=== PATIENT | male | born 1965 | race Caucasian/White ===

== ENCOUNTER → 2020-05-30 16:02 | Outpatient (CLI) | payer OTHER, SELFPAY ==
--- NOTE | ~2020-05-30 | CT_ITS ---
EXAMINATION: CT chest wo con DATE: 05/30/2020 16:33 INDICATION: Cough. Post COVID-19 TECHNIQUE: Computed tomography (CT) of the chest was performed without intravenous contrast. Automate d exposure control and iterative reconstruction technique were employed. Exam dose: 745.40 mGy-cm to royce exam DLP. COMPARISON: None FINDINGS: No pulmonary infiltrate or consolidation, pulmonary vascular congestion or pleural effusion or pneumothorax. Normal heart size. No pericardial effusion. No hilar or mediastinal mass lesion or lymphadenopathy. No thoracic aortic aneurysm. Normal adrenal glands. No suspicious osteolytic or osteoblastic lesions. IMPRESSION: No significant abnormality Reviewed, dictated and finalized at [facility] Reviewed, dictated and finalized at [facility]. IMPRESSION: No significant abnormality
== END ==
PROVIDERS: PCP Family Medicine; Visit Provider Family Medicine
DX: R05 Cough (principal)
CPT/HCPCS: 71250

== ENCOUNTER 2020-09-27 00:47 | Outpatient (CLI) | payer OTHER, SELFPAY ==
[2020-09-27 20:08] LABS: SARS-CoV-2 RNA PCR Negative
== END 2020-09-27 00:48 | disposition home or self-care (01) ==
LOC: ANHCOVIDDT 00:47
PROVIDERS: PCP Family Medicine; Visit Provider Internal Medicine Gastroenterology
DX: Z01.812 Encounter for preprocedural laboratory examination (principal); Z20.822 Contact with and (suspected) exposure to COVID-19
CPT/HCPCS: C9803; U0003

== ENCOUNTER 2020-09-30 01:29 | Day surgery (SDC) | payer OTHER, SELFPAY ==
[2020-09-11 12:42] VITALS: BMI 41.1
[2020-09-30 06:56] VITALS: BP 144/100; PULSE 90; RESP 20; TEMP 36.4; O2SAT 98
[2020-09-30] MEDS: LACTATED RINGERS 1,000 ML 150 ML IV CONT (07:16)
--- NOTE | 2020-09-30 07:31 | WPDANESEPPF ---
Anes - Initial Pre Proc Eval Procedure: Operation Date: 09/30/20 08:00 Proposed Procedures p Screening Colonoscopy - Jose Luis Gonzáles MD Date/Time: 09/30/20 07:31 Surgeon: Jose Luis Gonzáles MD Pre Op Diagnosis: neoplasm screening Patient Data Age: 54 Gender: M Height: 5 ft 10.5 in Weight: 129.8 kg Last Vital Signs Temp 97.5 F L 09/30/20 06:56 Pulse 90 09/30/20 06:56 Resp 20 09/30/20 06:56 BP 144/100 H 09/30/20 06:56 Pulse Ox 98 09/30/20 06:56 Allergies Allergy/AdvReac Type Severity Reaction Status Date / Time No Known Allergies Allergy Mild Verified 09/30/20 06:55 Home Medications Medication Instructions Recorded Confirmed Type omeprazole 20 mg capsule,delayed 20 mg PO DAILY 08/09/19 09/30/20 History release atorvastatin 20 mg tablet 20 mg PO DAILY #30 tablet 09/10/19 09/30/20 Rx irbesartan 150 mg tablet 150 mg PO DAILY #30 tablet 05/26/20 09/30/20 Rx sildenafil 100 mg tablet 100 mg PO DAILY PRN #10 tablet 06/03/20 09/30/20 Rx valacyclovir 1 gram tablet 1,000 mg PO DAILY #30 tablet 06/06/20 09/30/20 Rx peg 3350 240 gram-electrolytes 240 ml PO Q10M #4000 ml 08/04/20 09/30/20 Rx 22.72 gram-6.72 g-5.84 g powdr for soln lisdexamfetamine [Vyvanse] 30 mg PO DAILY PRN 09/11/20 09/30/20 History Patient hx anesthesia problems: none Family hx anesthesia problems: none PMFSH Past Medical History Medical History (Updated 08/05/20 @ 14:56 by Neil Vasquez MD) Chronic nonallergic rhinitis Colon cancer screening Cough COVID-19 virus detected Encounter for screening for other viral diseases Encounter for wellness examination in adult Male erectile dysfunction, unspecified Prepatellar bursitis, right knee Shortness of breath Surgical History Surgical History History of inguinal hernia repair laparoscopic bilateral inguinal hernia repair with Progrip mesh, DaVinci Social History Social History Smoking status: Never smoker Alcohol intake: current Drinks per week: 0 Alcohol use details: MAY HAVE 1 OR 2 DRINKS PER MONTH Substance use: never Substance use type: does not use Living arrangements: with family Spiritual care concerns: No Anes - Eval Final PreProcedure Day of Procedure 09/30/20 07:31 Patient weight: morbidly obese Heart: regular rate and rhythm Lungs: clear to auscultation Airway: Mallampati scale class II Neurological: alert and oriented Last oral intake: >/= 8 hours ASA classification: III Emergent: no Anesthetic plan: proceed Anesthesia type and monitoring: general GIVS and standard monitoring Informed Consent: The patient's anesthetic plan and its attendant risks and benefits were discussed with the patient/family/POA. Questions were solicited and answers provided to the satisfaction of the patient/family/POA.
--- NOTE | 2020-09-30 08:05 | PM.HPGS ---
History of Present Illness History of Present Illness Consent: Risks, benefits, and alternatives have been discussed and questions answered. Patient agrees to proceed with procedure. Chief complaint: neoplasm screening Narrative: Orlando Mcbride is a 54 year old male here for first screening colonoscopy Review of Systems Constitutional: Constitutional: Denies headache(s) and Denies weakness Eyes: Eyes: Denies blurry vision ENT: Reports Normal hearing present, Denies headache(s) and Denies neck pain Cardiovascular: Cardiovascular: Denies chest pain and Denies dyspnea Respiratory: Respiratory: Denies dyspnea Gastrointestinal: Gastrointestinal: Reports no additional gastrointestinal complaints Genitourinary: Genitourinary: Denies dysuria Musculoskeletal: Musculoskeletal: Denies neck pain Integumentary/Breasts: Skin/Breast: Denies dry skin Neurologic: Reports Normal hearing present, Denies headache(s) and Denies weakness Psychiatric: Psychiatric: Denies anxiety Endocrine: Endocrine: Denies change in body appearance Hematologic/Lymphatic: Hematologic/Lymphatic: Denies easy bleeding Allergic/Immunologic: Allergic/Immunologic: Denies urticaria PMFSH Past Medical History Medical History (Updated 08/05/20 @ 14:56 by Neil Vasquez MD) Chronic nonallergic rhinitis Colon cancer screening Cough COVID-19 virus detected Encounter for screening for other viral diseases Encounter for wellness examination in adult Male erectile dysfunction, unspecified Prepatellar bursitis, right knee Shortness of breath Surgical History Surgical History History of inguinal hernia repair laparoscopic bilateral inguinal hernia repair with Progrip mesh, DaVinci Social History Social History Smoking status: Never smoker Alcohol intake: current Drinks per week: 0 Alcohol use details: MAY HAVE 1 OR 2 DRINKS PER MONTH Substance use: never Substance use type: does not use Living arrangements: with family Spiritual care concerns: No Meds Home Medications and Allergies Home Medications Medication Instructions Recorded Confirmed Type omeprazole 20 mg capsule,delayed 20 mg PO DAILY 08/09/19 09/30/20 History release atorvastatin 20 mg tablet 20 mg PO DAILY #30 tablet 09/10/19 09/30/20 Rx irbesartan 150 mg tablet 150 mg PO DAILY #30 tablet 05/26/20 09/30/20 Rx sildenafil 100 mg tablet 100 mg PO DAILY PRN #10 tablet 06/03/20 09/30/20 Rx valacyclovir 1 gram tablet 1,000 mg PO DAILY #30 tablet 06/06/20 09/30/20 Rx peg 3350 240 gram-electrolytes 240 ml PO Q10M #4000 ml 08/04/20 09/30/20 Rx 22.72 gram-6.72 g-5.84 g powdr for soln lisdexamfetamine [Vyvanse] 30 mg PO DAILY PRN 09/11/20 09/30/20 History Allergies Allergy/AdvReac Type Severity Reaction Status Date / Time No Known Allergies Allergy Mild Verified 09/30/20 06:55 Vital Signs Vital Signs - 24 hr 09/30/20 06:56 Temperature 97.5 F L Pulse Rate 90 Respiratory Rate 20 Blood Pressure 144/100 H Pulse Oximetry 98 Exam Const: General: comfortable and no acute distress HENMT: General nose exam: Normal nares present Eyes: General: appearance normal, both eyes and all related structures Neck: Neck: no JVD Resp: Auscultation: clear to auscultation bilaterally Cardio: Rate: regular rate Rhythm: regular rhythm GI: Inspection: non-distended GI Palp: Yes Soft to palpation Skin: General skin exam: normal color Neuro: General: gait normal Speech: normal speech Extrem: General: normal to inspection Psych: Mental Status: mental status grossly normal Assessment and Plan Assessment and plan (1) Colon cancer screening: Code(s): Z12.11 - Encounter for screening for malignant neoplasm of colon Status: Acute Assessment and Plan: will proceed with colonoscopy
[2020-09-30 08:29] VITALS: BP 135/87; PULSE 73; RESP 18; O2SAT 95
[2020-09-30 08:39] VITALS: BP 113/83; PULSE 71; RESP 22; O2SAT 94
[2020-09-30 08:49] VITALS: BP 135/90; PULSE 75; RESP 20; O2SAT 96
== END 2020-09-30 09:05 | disposition home or self-care (01) ==
PROVIDERS: PCP Family Medicine; Visit Provider Internal Medicine Gastroenterology
PROC: 0DJD8ZZ Inspection of Lower Intestinal Tract, Via Natural or Artificial Opening Endoscopic (ICD-10-PCS; CPT 45378; principal; 2020-09-30 08:00)
DX: Z12.11 Encounter for screening for malignant neoplasm of colon (principal); D12.2 Benign neoplasm of ascending colon; Z86.16 Personal history of COVID-19; N52.9 Male erectile dysfunction, unspecified; M70.41 Prepatellar bursitis, right knee; E66.01 Morbid (severe) obesity due to excess calories; Z68.41 Body mass index [BMI] 40.0-44.9, adult
CPT/HCPCS: 45385; 88305; C9803; J2704; J7120; U0003

== ENCOUNTER 2021-06-14 16:54 | Emergency (ER) | payer OTHER, SELFPAY ==
[2021-06-14 18:35] VITALS: BP 162/89; PULSE 88; RESP 18; TEMP 36.4; O2SAT 96
[2021-06-14 19:14] LABS: Basophils Absolute Auto 0.1 K/mm3 (0.0-0.1); Basophils Percent Auto 0.8 % (0.2-1.2); Eosinophils Absolute Auto 0.5 K/mm3 (0-0.3); Eosinophils Percent Auto 5.4 % (0-4.4); Hematocrit 46.3 % (42.0-52.0); Hemoglobin 16.2 g/dL (14.0-18.0); Immature Granulocyte Absolute 0.03 K/mm3 (0.00-0.031); Immature Granulocyte Percent A 0.3 % (0-0.5); Lymphocytes Absolute Auto 2.58 K/mm3 (0.9-3.2); Lymphocytes Percent Auto 27.7 % (18.3-44.2); Mean Corpuscular Hemoglobin 32.1 pg (26-34); Mean Corpuscular Volume 91.7 fl (80-100); Mean Platelet Volume 9.6 fl (7.4-10.4); Monocytes Absolute Auto 0.9 K/mm3 (0.1-0.6); Monocytes Percent Auto 9.3 % (2.6-8.5); Neutrophils Absolute Auto 5.3 K/mm3 (1.3-6.7); Neutrophils Percent Auto 56.5 % (45.5-73.1); Platelet Count Result 232 k/mm3 (150-375); Red Blood Count 5.05 M/mm3 (4.6-6.20); Red Cell Distribution Width 13.2 % (11.5-14.5); White Blood Count 9.3 K/mm3 (4.5-10.0)
[2021-06-14 19:28] LABS: Alanine Aminotransferase 30 U/L (4-50); Albumin Level 4.4 g/dL (3.5-5.1); Alkaline Phosphatase 88 U/L (38-126); Anion Gap 8 mmol/L (8-16); Aspartate Amino Transferase 32 U/L (17-59); Bilirubin,Total 0.5 mg/dL (0.2-1.3); Blood Urea Nitrogen 15 mg/dL (9-20); Calcium 9.1 mg/dL (8.4-10.2); Carbon Dioxide 27 mmol/L (22-30); Chloride 104 mmol/L (98-107); Estimated CRCL calculation 67 ml/min; Estimated Glomerular Filt Rate > 60; Glucose 97 mg/dL (65-110); Lipase 120 U/L (23-300); Potassium 3.8 mmol/L (3.4-5.0); Sodium 139 mmol/L (137-145)
--- NOTE | 2021-06-14 19:55 | ED.ABDPAIN ---
HPI - Abdominal Pain General Chief Complaint: Abdominal Pain Stated Complaint: upper abd pain, black stool Time Seen by Provider: 06/14/21 19:11 Source: patient and RN notes reviewed Mode of arrival: ambulatory Limitations: no limitations History of Present Illness HPI narrative: This is a 55 year old male who presents for evaluation intermittent left upper abdominal pain. He has noticed intermittent sharp pain to his left upper abdomen over the past week. He reports that pain will last seconds and it will subside. He denies pain radiating to his back or chest pain. He denies associated nausea, vomiting,fever chills or urinary symptoms. He reports frequent stools which are normal for him. His suggested he come to ER because today he noticed his stool was dark this morning. He reports he forgot he took pepto bismol last night for indigestion. He states he has not been having abdominal pain today. Related Data Home Medications Medication Instructions Recorded Confirmed omeprazole 20 mg capsule,delayed 20 mg PO DAILY 08/09/19 04/03/21 release lisdexamfetamine [Vyvanse] 30 mg PO DAILY PRN 09/11/20 04/03/21 Allergies Allergy/AdvReac Type Severity Reaction Status Date / Time No Known Allergies Allergy Mild Verified 06/14/21 18:38 Review of Systems Review of Systems: All systems reviewed & are unremarkable except as noted in HPI and below PMFSH Past Medical History Medical History Chronic nonallergic rhinitis Colon cancer screening Cough COVID-19 virus detected Encounter for screening for other viral diseases Encounter for wellness examination in adult Male erectile dysfunction, unspecified Otitis externa Prepatellar bursitis, right knee Shortness of breath Wellness examination Surgical History Surgical History History of inguinal hernia repair laparoscopic bilateral inguinal hernia repair with Progrip mesh, DaVinci Social History Social History Smoking status: Never smoker Alcohol intake: current Drinks per week: 0 Alcohol use details: MAY HAVE 1 OR 2 DRINKS PER MONTH Substance use: never Substance use type: does not use Spiritual care concerns: No Exam Const: General: no acute distress and alert Nutritional Appearance: obese Orientation/consciousness: patient oriented x3 Eyes: Pupils: Equal, round and reactive pupils present EOM: EOMs intact bilaterally Chest: Chest palpation & inspection: normal inspection of the chest Resp: Effort & Inspection: normal respiratory effort and no retractions Auscultation: clear to auscultation bilaterally Cardio: Rate: regular rate Rhythm: regular rhythm Heart sounds: no murmurs GI: GI Palp: Yes Soft to palpation, No Tenderness to palpation present (GI) and No Guarding due to palpation present (GI) Auscultation: normal bowel sounds Skin: General skin exam: normal color Rashes: no rashes Neuro: General: patient oriented x3, moves all extremities and CN's II-XI intact bilaterally Psych: Mental Status: mental status grossly normal Affect: normal affect Course Reevaluation(s) Reevaluation #1: Patient has a normal abdominal exam. He is guaic negative with normal labs. He is stable for discharge. his dark stool is due to his pepto bismal which is why his wanted him to come to ER. Date: 06/14/21 Time: 20:18 Vital Signs Vital signs: Vital Signs Temperature 97.6 F 06/14/21 18:35 Pulse Rate 88 06/14/21 18:35 Respiratory Rate 18 06/14/21 18:35 Blood Pressure 162/89 H 06/14/21 18:35 Pulse Oximetry 96 06/14/21 18:35 Temperature 97.6 F 06/14/21 18:35 Pulse Rate 85 06/14/21 20:32 Respiratory Rate 16 06/14/21 20:32 Blood Pressure 136/90 06/14/21 20:32 Pulse Oximetry 99 06/14/21 20:32 MDM - Abdominal Pain Lab Data Attestatio
[2021-06-14 20:13] LABS: Add Urine Microscopic? NO; Appearance Urine Clear (Clear); Bilirubin Urine Negative (Negative); Blood Urine Negative (Negative); Color Urine Yellow (Yellow); Glucose Urine UA Negative (Negative); Ketones Urine Negative (Negative); Leukocyte Esterase Ur Negative LEU/UL (Negative); Nitrate Urine Negative (Negative); Protein Urine Negative (Negative); Specific Grav Ur 1.024 (1.001-1.035); Urobilinogen Urine Negative mg/dL (<2.0)
[2021-06-14 20:32] VITALS: BP 136/90; PULSE 85; RESP 16; O2SAT 99
== END 2021-06-14 20:32 | disposition home or self-care (01) ==
PROVIDERS: Family Medicine; Emergency Provider General Practice; PCP Family Medicine
DX: R19.5 Other fecal abnormalities (principal); Z86.16 Personal history of COVID-19
CPT/HCPCS: 36415; 80053; 81003; 83690; 85025; 86850; 86900; 86901; 99283

== ENCOUNTER 2021-08-05 01:16 | Day surgery (SDC) | payer OTHER, SELFPAY ==
[2021-07-23 15:46] VITALS: BMI 39.8
[2021-08-05 09:25] VITALS: BP 150/113; PULSE 88; RESP 20; TEMP 36.4; O2SAT 96
[2021-08-05] MEDS: LACTATED RINGERS 1,000 ML 150 ML IV CONT (09:40)
--- NOTE | 2021-08-05 10:15 | WPDANESEPPF ---
Anes - Initial Pre Proc Eval Procedure: Operation Date: 08/05/21 10:30 Proposed Procedures p Esophagogastroduodenoscopy - Jose Luis Gonzáles MD Date/Time: 08/05/21 10:15 Surgeon: Jose Luis Gonzáles MD Pre Op Diagnosis: GERD Patient Data Age: 55 Gender: M Height: 1.8 m Weight: 137.4 kg Last Vital Signs Temp 36.4 C 08/05/21 09:25 Pulse 88 08/05/21 09:25 Resp 20 08/05/21 09:25 BP 150/113 H 08/05/21 09:25 Pulse Ox 96 08/05/21 09:25 Allergies Allergy/AdvReac Type Severity Reaction Status Date / Time No Known Allergies Allergy Mild Verified 08/05/21 09:24 Home Medications Medication Instructions Recorded Confirmed Type irbesartan 150 mg tablet 150 mg PO DAILY #30 tablet 05/26/20 07/23/21 Rx sildenafil 100 mg tablet 100 mg PO DAILY PRN #10 tablet 06/03/20 07/23/21 Rx atorvastatin 20 mg tablet 20 mg PO DAILY #30 tablet 01/27/21 07/23/21 Rx omeprazole 20 mg capsule,delayed 40 mg PO DAILY cap 07/15/21 07/23/21 History release valacyclovir 1,000 mg PO DAILY PRN 07/23/21 07/23/21 History Patient hx anesthesia problems: none Family hx anesthesia problems: none Results Review: All pre-operative results and documents have been reviewed as part of the pre-operative evaluation. [facility] Past Medical History Medical History (Updated 07/15/21 @ 16:01 by Jayson White MD) Chronic nonallergic rhinitis Colon cancer screening Cough COVID-19 virus detected Dysphagia Encounter for screening for other viral diseases Encounter for wellness examination in adult Male erectile dysfunction, unspecified Otitis externa Prepatellar bursitis, right knee Shortness of breath Wellness examination Surgical History Surgical History History of inguinal hernia repair laparoscopic bilateral inguinal hernia repair with Progrip mesh, DaVinci Social History Social History Smoking status: Never smoker Alcohol intake: current Drinks per week: 0 Alcohol use details: very rarely Substance use: never Substance use type: does not use Living arrangements: with family Spiritual care concerns: No Anes - Eval Final PreProcedure Day of Procedure 08/05/21 10:15 Patient weight: morbidly obese Heart: regular rate and rhythm Lungs: clear to auscultation and normal air movement Airway: Mallampati scale class II Neurological: alert and oriented Last oral intake: >/= 8 hours ASA classification: III Emergent: no Anesthetic plan: proceed Anesthesia type and monitoring: general GIVS Results Review: All pre-operative results and documents have been reviewed as part of the pre-operative evaluation. Informed Consent: The patient's anesthetic plan and its attendant risks and benefits were discussed with the patient/family/POA. Questions were solicited and answers provided to the satisfaction of the patient/family/POA.
--- NOTE | 2021-08-05 10:31 | PM.HPGS ---
History of Present Illness History of Present Illness Consent: Risks, benefits, and alternatives have been discussed and questions answered. Patient agrees to proceed with procedure. Chief complaint: GERD Narrative: Orlando Mcbride is a 55 year old male with dysphagia to solids and gerd on ppi, never had egd Review of Systems Constitutional: Constitutional: Denies headache(s) and Denies weakness Eyes: Eyes: Denies blurry vision ENT: Reports Normal hearing present, Denies headache(s) and Denies neck pain Cardiovascular: Cardiovascular: Denies chest pain and Denies dyspnea Respiratory: Respiratory: Denies dyspnea Gastrointestinal: Gastrointestinal: Reports no additional gastrointestinal complaints Genitourinary: Genitourinary: Denies dysuria Musculoskeletal: Musculoskeletal: Denies neck pain Integumentary/Breasts: Skin/Breast: Denies dry skin Neurologic: Reports Normal hearing present, Denies headache(s) and Denies weakness Psychiatric: Psychiatric: Denies anxiety Endocrine: Endocrine: Denies change in body appearance Hematologic/Lymphatic: Hematologic/Lymphatic: Denies easy bleeding Allergic/Immunologic: Allergic/Immunologic: Denies urticaria PMFSH Past Medical History Medical History (Updated 07/15/21 @ 16:01 by Jayson White MD) Chronic nonallergic rhinitis Colon cancer screening Cough COVID-19 virus detected Dysphagia Encounter for screening for other viral diseases Encounter for wellness examination in adult Male erectile dysfunction, unspecified Otitis externa Prepatellar bursitis, right knee Shortness of breath Wellness examination Surgical History Surgical History History of inguinal hernia repair laparoscopic bilateral inguinal hernia repair with Progrip mesh, DaVinci Social History Social History Smoking status: Never smoker Alcohol intake: current Drinks per week: 0 Alcohol use details: very rarely Substance use: never Substance use type: does not use Living arrangements: with family Spiritual care concerns: No Meds Home Medications and Allergies Home Medications Medication Instructions Recorded Confirmed Type irbesartan 150 mg tablet 150 mg PO DAILY #30 tablet 05/26/20 07/23/21 Rx sildenafil 100 mg tablet 100 mg PO DAILY PRN #10 tablet 06/03/20 07/23/21 Rx atorvastatin 20 mg tablet 20 mg PO DAILY #30 tablet 01/27/21 07/23/21 Rx omeprazole 20 mg capsule,delayed 40 mg PO DAILY cap 07/15/21 07/23/21 History release valacyclovir 1,000 mg PO DAILY PRN 07/23/21 07/23/21 History Allergies Allergy/AdvReac Type Severity Reaction Status Date / Time No Known Allergies Allergy Mild Verified 08/05/21 09:24 Vital Signs Vital Signs - 24 hr 08/05/21 09:25 Temperature 97.6 F Pulse Rate 88 Respiratory Rate 20 Blood Pressure 150/113 H Pulse Oximetry 96 Exam Const: General: comfortable and no acute distress HENMT: General nose exam: Normal nares present Eyes: General: appearance normal, both eyes and all related structures Neck: Neck: no JVD Resp: Auscultation: clear to auscultation bilaterally Cardio: Rate: regular rate Rhythm: regular rhythm GI: Inspection: non-distended GI Palp: Yes Soft to palpation Skin: General skin exam: normal color Neuro: General: gait normal Speech: normal speech Extrem: General: normal to inspection Psych: Mental Status: mental status grossly normal Assessment and Plan Assessment and plan (1) Dysphagia: Qualifiers: Dysphagia type: unspecified Qualified Code(s): R13.10 - Dysphagia, unspecified Code(s): R13.10 - Dysphagia, unspecified Status: Acute Assessment and Plan: egd, may need dilation based on findings (2) Gastro-esophageal reflux disease without esophagitis: Code(s): K21.9 - Gastro-esophageal reflux disease without esophagitis
[2021-08-05 10:53] VITALS: BP 129/101; PULSE 88; RESP 18; O2SAT 97
[2021-08-05 11:03] VITALS: BP 133/85; PULSE 85; RESP 15; O2SAT 96
[2021-08-05 11:18] VITALS: BP 135/88; PULSE 80; RESP 18; O2SAT 97
== END 2021-08-05 11:34 | disposition home or self-care (01) ==
PROVIDERS: PCP Family Medicine; Visit Provider Internal Medicine Gastroenterology
PROC: 0DJ08ZZ Inspection of Upper Intestinal Tract, Via Natural or Artificial Opening Endoscopic (ICD-10-PCS; CPT 43235; principal; 2021-08-05 10:30)
DX: K21.9 Gastro-esophageal reflux disease without esophagitis (principal); K22.2 Esophageal obstruction; K44.9 Diaphragmatic hernia without obstruction or gangrene
CPT/HCPCS: 43239; 43249; 88305; C1726; J2704; J7120

== ENCOUNTER 2022-10-15 01:00 | Day surgery (SDC) | payer OTHER, SELFPAY ==
[2022-10-07 14:02] VITALS: BMI 30.9
[2022-10-15 12:47] VITALS: BP 135/97; PULSE 90; RESP 17; TEMP 36.6; O2SAT 98; BMI 31.6
--- NOTE | 2022-10-15 12:53 | WPDANESEPPF ---
Anes - Initial Pre Proc Eval Procedure: Operation Date: 10/15/22 14:00 Proposed Procedures p Esophagogastroduodenoscopy - Jose Luis Gonzáles MD Date/Time: 10/15/22 12:53 Surgeon: Jose Luis Gonzáles MD Pre Op Diagnosis: dysphagia Patient Data Age: 56 Gender: M Height: 1.78 m Weight: 99.9 kg Last Vital Signs Temp 97.9 F 10/15/22 12:47 Pulse 90 10/15/22 12:47 Resp 17 10/15/22 12:47 BP 135/97 H 10/15/22 12:47 Pulse Ox 98 10/15/22 12:47 O2 Del Method Room Air 10/15/22 12:47 Allergies Allergy/AdvReac Type Severity Reaction Status Date / Time No Known Allergies Allergy Mild Verified 10/15/22 12:46 Home Medications Medication Instructions Recorded Confirmed Type sildenafil 100 mg tablet 100 mg PO DAILY PRN sexual 07/19/22 10/15/22 Rx activity #10 tabs valacyclovir 1 gram tablet 1,000 mg PO BID PRN HSV #30 tabs 09/06/22 10/15/22 Rx multivitamin 1 tablet PO DAILY 09/13/22 10/15/22 History omeprazole 40 mg capsule,delayed 40 mg PO DAILY #30 caps 10/01/22 10/15/22 Rx release lisdexamfetamine 30 mg capsule 30 mg PO DAILY #30 caps 10/04/22 10/15/22 Rx (Vyvanse) Patient hx anesthesia problems: none Family hx anesthesia problems: none Results Review: All pre-operative results and documents have been reviewed as part of the pre-operative evaluation. [facility] Past Medical History Medical History Abnormal fasting glucose (~02/15/22) Glucose 106 with hemoglobin A1c 5.7 on 02/15/2022. Glucose 95 with hemoglobin A1c 5.4 on 05/28/2022. Adenomatous colon polyp (09/30/20) Two small polyps with Dr. Cobb 09/30/2020 with recheck in 5 years. BMI 31.0-31.9,adult BMI 36.0-36.9,adult Body mass index (BMI) 40.0-44.9, adult (01/29/19) Chronic nonallergic rhinitis Colon cancer screening Cough COVID-19 virus detected (~02/2020) Dysphagia Elevated fasting glucose Encounter for other specified surgical aftercare Encounter for screening for other viral diseases Encounter for wellness examination in adult Esophageal ring Hiatal hernia Male erectile dysfunction, unspecified Obesity (BMI 30-39.9) Otitis externa Prepatellar bursitis, right knee Right knee pain Shortness of breath Wellness examination Surgical History Surgical History History of inguinal hernia repair laparoscopic bilateral inguinal hernia repair with Progrip mesh, DaVinci S/P gastric sleeve procedure (12/31/21) Social History Social History Smoking status: Never smoker Alcohol intake: current Drinks per week: 0 Alcohol use details: rarely drinks alcohol Substance use: never Substance use type: does not use Lack of Transportation: No Lack of Food: Never True Current Housing: I Have Housing Concerned About Future Housing: No Difficulty Paying Gas/Electric Bills: No Difficulty Paying for Meds: No Currently Unemployed: No Education: Bachelor's Degree Difficulty w/ Childcare or Family Care: No Living arrangements: with family Spiritual care concerns: No Anes - Eval Final PreProcedure Day of Procedure 10/15/22 12:53 Patient weight: obese Heart: regular rate and rhythm Lungs: clear to auscultation Airway: Mallampati scale class II Neurological: alert and oriented Last oral intake: >/= 8 hours ASA classification: II Emergent: no Anesthetic plan: proceed Anesthesia type and monitoring: general GIVS and standard monitoring Results Review: All pre-operative results and documents have been reviewed as part of the pre-operative evaluation. Informed Consent: The patient's anesthetic plan and its attendant risks and benefits were discussed with the patient/family/POA. Questions were solicited and answers provided to the satisfaction of the patient/family/POA.
[2022-10-15] MEDS: LACTATED RINGERS 1,000 ML 150 ML IV CONT (12:57)
--- NOTE | 2022-10-15 13:35 | WPDHPUPDATE1 ---
History and Physical Update Update Date/Time: 10/15/22 13:35 History and Physical has been reviewed, including an updated exam of the patient. There are NO changes in the patient's condition. Risks, benefits, and alternatives have been discussed and questions answered. Patient agrees to proceed with procedure.
[2022-10-15 13:49] VITALS: BP 124/71; PULSE 97; RESP 24; O2SAT 97
[2022-10-15 13:59] VITALS: BP 126/88; PULSE 79; RESP 25; O2SAT 98
[2022-10-15 14:09] VITALS: BP 129/88; PULSE 82; RESP 18; O2SAT 97
== END 2022-10-15 14:29 | disposition home or self-care (01) ==
PROVIDERS: PCP Family Medicine; Visit Provider Internal Medicine Gastroenterology
PROC: 0DJ08ZZ Inspection of Upper Intestinal Tract, Via Natural or Artificial Opening Endoscopic (ICD-10-PCS; CPT 43235; principal; 2022-10-15 14:00)
DX: K21.9 Gastro-esophageal reflux disease without esophagitis (principal); K22.2 Esophageal obstruction; K44.9 Diaphragmatic hernia without obstruction or gangrene; Z98.84 Bariatric surgery status; E66.9 Obesity, unspecified; Z68.31 Body mass index [BMI] 31.0-31.9, adult
CPT/HCPCS: 43239; 43249; 88305; C1726; J2704; J7120